=== PATIENT | female | born 1940 | race Caucasian/White ===

== ENCOUNTER 2019-03-28 09:00 | Day surgery (SDC) | payer MEDICARE, OTHER ==
[~2019-03-28] VITALS: Ht 165.1 cm; Wt 62.9 kg
[~2019-03-28 09:00] MED LIST: CLONAZEPAM; UNKNOWN HTN MED; [UNRECOGNIZED DRUG - CODE] PO; [UNRECOGNIZED DRUG - CODE] PO
[2019-03-28 09:57] VITALS: Ht 165.1 cm; Wt 62.9 kg
[2019-03-28 10:40] VITALS: BP 141/64; PULSE 72; RESP 16
[2019-03-28] MEDS ORDERED: PROPOFOL 200 MG INJ ONE (10:45)
[2019-03-28] MEDS ORDERED: LIDOCAINE 100 MG SYRINGE ONE (10:48)
[2019-03-28] MEDS ORDERED: PROPOFOL 20 ML ONE (10:48)
[2019-03-28 11:40] VITALS: BP 128/73; RESP 27
== END 2019-03-28 13:41 | disposition home or self-care (01) ==
LOC: GIL 09:00
PROVIDERS: ATTEND Internal Medicine Gastroenterology
DX: R19.4 Change in bowel habit (principal); K64.8 Other hemorrhoids
CPT/HCPCS: 45378; J2001